=== PATIENT | male | born 1980 | race Caucasian/White ===

== ENCOUNTER 2017-01-09 21:57 | Emergency (ER) | payer SELFPAY ==
[~2017-01-09] VITALS: Ht 177.8 cm; Wt 90.7 kg
[~2017-01-09 21:57] MED LIST: SUBOXONE 2 MG-01 TA1 SL
[2017-01-09 22:27] LABS: HEMATOCRIT 46.8 % (42.0-52.0); HEMOGLOBIN 15.8 g/dl (14.0-18.0); MEAN CELL VOLUME 96.3 fl (80.0-94.0); MEAN CORPUSCULAR HGB 32.5 pg (27.0-31.0); MEAN CORPUSCULAR HGB CONC 33.8 g/dl (33.0-37.0); MEAN PLATELET VOLUME 9.5 fl (9.6-12.3); PLATELET COUNT AUTOMATED 300 10*3/uL (130-400); RED BLOOD COUNT 4.86 10*6/uL (4.50-5.90); RED CELL DISTRI WIDTH 14.5 % (0-14.5); WHITE BLOOD COUNT 14.3 10*3/uL (4.8-10.8)
[2017-01-09 22:45] LABS: BASOPHIL # 0.1 10*3/uL (0-0.1); BASOPHILS 1 % (0-1); LYMPHOCYTE # 0.7 10*3/uL (1.3-4.4); MONOCYTE # 0.4 10*3/uL (0.1-1.0); NEUTROPHILS 91 % (47-73); PLATELET SUFFICIENCY NORMAL (NORMAL); TOTAL CELLS COUNTED 100 #CELLS
[2017-01-09 22:48] LABS: ALKALINE PHOSPHATASE 48 U/L (45-117); BILIRUBIN, TOTAL 0.5 mg/dl (0.2-1.0); BUN 30 mg/dl (7-24); CARBON DIOXIDE 26 mmol/L (21-32); CHLORIDE 104 mmol/L (98-107); EST GLOM FILT AFRICAN AMERICAN 56 ml/min; GLUCOSE 106 mg/dL (65-99); POTASSIUM 5.3 mmol/L (3.5-5.1); SGOT/AST 209 IU/L (3-35); SGPT/ALT 110 U/L (12-78); SODIUM 144 mmol/L (136-145); TOTAL PROTEIN 7.8 gm/dL (6.4-8.2)
[2017-01-10 02:52] LABS: BILIRUBIN 1+ (NEGATIVE); BLOOD NEGATIVE (NEGATIVE); CLARITY SL CLOUDY (CLEAR); COLOR YELLOW (YELLOW); GLUCOSE NEGATIVE (NEGATIVE); KETONE NEGATIVE (NEGATIVE); LEUKO ESTERASE NEGATIVE (NEGATIVE); NITRITE NEGATIVE (NEGATIVE); PROTEIN 1+ (NEGATIVE); SPECIFIC GRAVITY >= 1.030 (1.005-1.030); UROBILINOGEN 0.2 E.U./dl (0.2-1.0)
[2017-01-10 03:02] LABS: URINE AMPHETAMINES < 1000 (1000ng/ml); URINE BARBITURATES < 200 (200ng/ml); URINE COCAINE > 300 (300ng/ml)
[2017-01-10 03:05] LABS: BACTERIA 2+; EPITHELIAL CELLS 0-2
[2017-01-10 03:06] LABS: URINE REFLEX COMMENT YES (NO)
== END 2017-01-10 03:39 ==
LOC: ED 21:57
PROVIDERS: Emergency Medicine
DX: T40.1X1A Poisoning by heroin, accidental (unintentional), initial encounter (principal); T40.4X1A Poisoning by other synthetic narcotics, accidental (unintentional), initial encounter; T40.5X1A Poisoning by cocaine, accidental (unintentional), initial encounter; Y92.9 Unspecified place or not applicable

== ENCOUNTER 2017-02-28 14:34 | Inpatient (IN) | payer SELFPAY ==
[~2017-02-28] VITALS: Ht 178 cm; Wt 94.0 kg
--- NOTE | ~2017-02-28 | CON ---
[place], [place] REPORT OF CONSULTATION [id number] UNIT #: [id number] ROOM: 415 DOCTOR: HAMLET SMILEY MD BIRTHDATE: [birth year] DOS: 03/01/2017 REASON FOR CONSULTATION: Cardiomyopathy, elevated troponin level. HISTORY OF PRESENT ILLNESS: Baljit Stafford is a 36-year-old man with a long history of drug abuse. The patient did have a septic lesion in his left upper arm in 2011. This was treated with incision and drainage and prolonged antibiotic therapy. There is a question as to whether or not he had endocarditis at that time, but no surgery was required. Recently, he was noted to have increased fatigue and dyspnea. Laboratory studies were positive for Lyme disease exposure and possible legionella. A transthoracic echocardiogram done on 12/19/2016 showed an ejection fraction between 45% and 50% with moderate left ventricular hypertrophy and mild mitral insufficiency. A subsequent transesophageal echocardiogram also showed an ejection fraction of 45% with mild mitral insufficiency. The study was otherwise unremarkable. There was no evidence for any endocarditis. The patient did have an exercise stress test on 02/13/2017. He was able to walk 12 minutes on a full Dimas protocol without chest pain or diagnostic electrocardiographic changes and achieved 84% of his maximum predicted heart rate. It was felt that his presentation was most consistent with a non-ischemic cardiomyopathy. He was treated with losartan and metoprolol and allowed to go home. Subsequently, the patient did have a relapse of his heroin addiction and suffered from heroin overdose, which prompted current admission. He was found in a wooded area reportedly by family members who found that he was unresponsive. Emergency medical services were called and he was treated with Narcan with improvement of his sensorium. He was therefore brought to the Emergency Room for further care. On arrival, he was tachycardic. Chest x-ray was unremarkable. Hemoglobin was 16.9. His white count was elevated at 22,100. INR was 0.9. Sodium was 135, potassium 3.7, BUN 12 and creatinine 0.84. Lactic acid level was 4.3. CPK was not obtained, but his troponin level was mildly elevated at 0.053. It subsequently nichol to 0.294 and has not been repeated since then. [facility] was asked to assist the patient to determine the significance of his troponin elevation and ongoing management of his cardiomyopathy. 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 The patient mostly uses heroin or methadone. 2. History of left upper arm abscess with septicemia. There was a question as to whether he may have had endocarditis at that time, but as best I can tell, this was never confirmed. 3. Primary hypertension. 4. Hypogonadism. 5. Recent serologies reportedly positive for Legionella and Lyme disease. The patient has received a course of therapy for these. 6. Echocardiogram on 12/19/2016. Ejection fraction 45-50% with moderate left ventricular hypertrophy and mild mitral insufficiency. [place], [place] REPORT OF CONSULTATION NAME: JULIANA STAFFORD UNIT #: [id number] ROOM: 415 DOCTOR: HAMLET SMILEY MD BIRTHDATE: [birth year] 7. Transesophageal echocardiogram on 12/19/2016. Ejection fraction 45%, mild mitral insufficiency, otherwise normal. No evidence for endocarditis. 8. Exercise stress test 02/13/2017. 12 minutes Dimas protocol, 12.5 mets, 84% maximum predicted heart rate. No chest pain or diagnostic electrocardiographic changes. Low risk exercise stress test. 9. History of kidney surgery, tonsillectomy, adenoidectomy, incision of abscess and surgical manipulation of an ankle joint. REVIEW OF SYSTEMS: The patient denies diplopia or loss of vision. Denies lightheadedness or syncope. Denies focal weakness. Denies orthopnea or PND. Denies fevers, chills, sweats or recent weight change. He denies chest pain or palpitations. He denies nausea or vomiting. He denies hemoptysis or hematemesis. He denies blood in his stools or urine. He denies any peripheral edema. He denies any hot or swollen joints. He denies polydipsia or polyuria. The remainder of the review of systems is negative except as noted above. FAMILY HISTORY: Negative for early coronary artery disease. SOCIAL HISTORY: The patient does not consume alcohol or tobacco. PHYSICAL EXAMINATION: GENERAL: The patient is a well-nourished white male who is awake, alert and oriented. VITAL SIGNS: Pulse is 106 and regular, blood pressure is 144/70. He is afebrile. HEENT: Normocephalic, atraumatic. Extraocular muscles are intact. Sclerae are clear. Pupils are equal, round and react to light. Oral mucosa is moist. Tongue is midline. NECK: Supple. He has no jugular distention. Carotids are full. He has no bruits. He has no neck or supraclavicular masses. LUNGS: Respirations are unlabored. His chest is clear to auscultation and percussion. He has no presacral edema or chest wall tenderness. CARDIOVASCULAR: His heart has a regular rhythm. He has an S4 gallop, but no S3 or murmur. The PMI is not displaced. He has no precordial heave, lift or thrill. ABDOMEN: Soft and normoactive without masses, organomegaly or bruits. EXTREMITIES: Showed no clubbing, cyanosis or edema. Peripheral pulses are easily palpated bilaterally. LABORATORY DATA: Troponin levels are elevated as noted above. Total CK was not obtained. Electrocardiogram shows sinus tachycardia with mild nonspecific ST changes, but is an otherwise normal electrocardiogram. IMPRESSIONS: 1. Heroin overdose. 2. Elevated troponin, most likely this is due to demand ischemia from the patient's hypoxemia, hypotension, etc. in the midst of his overdose. [place], [place] REPORT OF CONSULTATION NAME: JULIANA STAFFORD UNIT #: [id number] ROOM: 415 DOCTOR: HAMLET SMILEY MD BIRTHDATE: [birth year] 3. History of positive serologies for legionella and Lyme disease. 4. Cardiomyopathy, etiology not established, but most likely nonischemic. The patient has been on medical therapy for this, but has not been on any medications for few weeks. PLAN: We will resume the patient's beta blockers and losartan. I would like to watch him overnight and follow his troponin a little farther. If his vital signs appeared normal and his troponins are following by tomorrow morning, I think he could be discharged home for further followup as an outpatient. I thank the hospitalist physicians for asking our advice regarding his care. HAMLET SMILEY MD CM:CONSTR:REPORT OF CONSULTATION 1520 03/01/17 2237 interface
--- NOTE | ~2017-02-28 | CON ---
[place], [place] REPORT OF CONSULTATION NAME: JULIANA MEDEL UNIT #: [id number] ROOM: 415 DOCTOR: WARREN RUSHING,KACI Ambrocio BIRTHDATE: [birth year] DOS: 03/01/2017 ADDENDUM After reviewing the labs and the chart and examining the patient's data, I agree with the above plans as described in Infectious Disease note from March 01. We will follow the patient clinically and adjust accordingly. Thank you for allowing us to see the patient. KACI KELLEY MD CM:CONSTR:REPORT OF CONSULTATION 1200 03/03/17 2135 interface
--- NOTE | ~2017-02-28 | CON ---
[place], [place] REPORT OF CONSULTATION NAME: JULIANA MEDEL UNIT #: [id number] ROOM: 415 DOCTOR: MAXINE TENORIO,OCTOBER BIRTHDATE: [birth year] DOS: 03/01/2017 HISTORY OF PRESENT ILLNESS: The patient is a 36-year-old male who is admitted for the second time in the last 2 months with heroin overdose. At this time, he had had Xanax as well as heroin. He states he was hospitalized at [facility] in December and was treated for Lyme disease and Legionnaires by Dr. Kaci Kelley. His last dose of doxycycline was February 23. He was also diagnosed with cardiomyopathy and is being followed by Dr. Andrade with Cardiology. At this point, there was some concern for sepsis due to an elevated lactic acid at the time of admission as well as tachycardia. The patient states he is alert and oriented, feeling well. He was having no problems prior to his overdose. No fevers. No chills. No pain anywhere. No headache. No dizziness. He has been afebrile since admission. His white count is down to 14.9 today from 22.1. PAST MEDICAL HISTORY: As above, cocaine abuse, drug overdose, primary hypertension, again Legionella, Lyme disease, low testosterone, right ankle fracture, cardiomyopathy, kidney surgery, tonsillectomy and adenoidectomy. SOCIAL HISTORY: Nonsmoker, nondrinker. Drug use as above. FAMILY MEDICAL HISTORY: Father with hypertension, mother with thyroid disease. ALLERGIES: No known drug allergies. CURRENT MEDICATIONS: Include Toprol, Cozaar, Lovenox, Protonix, Rocephin, Zofran and Dulcolax. RADIOLOGY: Chest x-ray is clear. LABORATORY DATA: WBC is 14.9, platelets 234. BUN 12, creatinine 0.84. LFTs within normal limits. REVIEW OF SYSTEMS: Alert and oriented, feels well. Again denies any fevers or chills. No cough or shortness of breath. No pain anywhere. No nausea, vomiting or diarrhea. No rash or itch. No joint swelling or pain. No headache or dizziness. Further review of systems is unremarkable. PHYSICAL EXAMINATION: VITAL SIGNS: Temp 97.2, pulse 98, respirations 17, BP 130/80. GENERAL: A 36-year-old male, in no acute distress. HEAD, EYES, EARS, NOSE AND THROAT: Normocephalic. Mucous membranes are pink and moist. No thrush. NECK: No cervical lymphadenopathy. LUNGS: Clear to auscultation bilaterally. Respirations even and unlabored. HEART: Regular rhythm. No murmur appreciated. ABDOMEN: Soft, nondistended, positive bowel sounds. EXTREMITIES: No edema, deformity or cyanosis. SKIN: Warm, dry, free of rashes, few tattoos. [place], [place] REPORT OF CONSULTATION NAME: JULIANA MEDEL UNIT #: [id number] ROOM: 415 DOCTOR: MAXINE TENORIOOCTOBER BIRTHDATE: [birth year] ASSESSMENT AND PLAN: He is status post treatment for reportedly Lyme disease and Legionella. He completed doxycycline on February 23. At this point, I see no further indications clinically for antibiotics. Does have leukocytosis, which is improving, status post heroin overdose. We will stop the antibiotics and followup on cultures. ROSALBA GOODMAN CNP KACI KELLEY MD CM:CONSTR:REPORT OF CONSULTATION 1741 03/03/17 0826 interface
--- NOTE | ~2017-02-28 | CON ---
[place], [place] REPORT OF CONSULTATION NAME: JULIANA MEDEL UNIT #: [id number] ROOM: 415 DOCTOR: WARREN RUSHING,KACI Ambrocio BIRTHDATE: [birth year] DOS: 03/01/2017 ADDENDUM After reviewing the chart and laboratory data, I agree with the above plans as described. I will follow the patient clinically and adjust accordingly. Thank you for allowing me to see the patient. KACI KELLEY MD CM:CONSTR:REPORT OF CONSULTATION 1159 03/03/17 2133 interface
[2017-02-28 14:34] VITALS: BP 164/104
[2017-02-28 15:21] LABS: BASO # 0.1 10*3/uL (0.0-0.1); BASO % 0.3 % (0.0-1.0); EOS # 0.1 10*3/uL (0.0-0.4); EOS % 0.2 % (1.0-4.0); HEMATOCRIT 48.1 % (42.0-52.0); HEMOGLOBIN 16.9 g/dl (14.0-18.0); IG # 0.2 10*3/uL (0.0-0.1); LYMPH # 2.3 10*3/uL (1.3-4.4); LYMPH % 10.5 % (27.0-41.0); MEAN CELL VOLUME 95.1 fl (80.0-94.0); MEAN CORPUSCULAR HGB 33.4 pg (27.0-31.0); MEAN CORPUSCULAR HGB CONC 35.1 g/dl (33.0-37.0); MEAN PLATELET VOLUME 9.6 fl (9.6-12.3); MONO # 1.2 10*3/uL (0.1-1.0); MONO % 5.4 % (3.0-9.0); NEUT # 18.3 10*3/uL (2.3-7.9); NEUT % 82.5 % (47.0-73.0); PLATELET COUNT AUTOMATED 266 10*3/uL (130-400); RED BLOOD COUNT 5.06 10*6/uL (4.50-5.90); RED CELL DISTRI WIDTH 13.8 % (0-14.5); WHITE BLOOD COUNT 22.1 10*3/uL (4.8-10.8)
[2017-02-28 15:32] VITALS: BP 153/90
[2017-02-28 15:38] LABS: ALKALINE PHOSPHATASE 53 U/L (45-117); BILIRUBIN, TOTAL 0.3 mg/dl (0.2-1.0); BUN 17 mg/dl (7-24); CARBON DIOXIDE 25 mmol/L (21-32); CHLORIDE 102 mmol/L (98-107); EST GLOM FILT AFRICAN AMERICAN > 60 ml/min; GLUCOSE 188 mg/dL (65-99); MAGNESIUM 2.2 mg/dL (1.5-2.1); POTASSIUM 4.2 mmol/L (3.5-5.1); SGOT/AST 36 IU/L (3-35); SGPT/ALT 46 U/L (12-78); SODIUM 137 mmol/L (136-145); TOTAL PROTEIN 7.5 gm/dL (6.4-8.2)
[2017-02-28 15:44] LABS: C-REACTIVE PROTEIN < 0.29 MG/DL (0-0.3)
[2017-02-28 15:46] LABS: TROPONIN I 0.053 ng/ml (<0.045)
[2017-02-28 16:14] LABS: INTERNATIONAL NORM RATIO 0.9 (2.0-3.5)
[2017-02-28 16:22] VITALS: BP 157/88
[2017-02-28 16:37] LABS: BILIRUBIN NEGATIVE (NEGATIVE); BLOOD TRACE-INTACT (NEGATIVE); CLARITY SL CLOUDY (CLEAR); COLOR YELLOW (YELLOW); GLUCOSE NEGATIVE (NEGATIVE); KETONE NEGATIVE (NEGATIVE); LEUKO ESTERASE NEGATIVE (NEGATIVE); NITRITE NEGATIVE (NEGATIVE); PH 5.5 (5.0-9.0); PROTEIN 1+ (NEGATIVE); SPECIFIC GRAVITY >= 1.030 (1.005-1.030); UROBILINOGEN 0.2 E.U./dl (0.2-1.0)
[2017-02-28 16:45] LABS: HYALINE CAST 51-100
[2017-02-28 16:46] LABS: BACTERIA TRACE; EPITHELIAL CELLS 0-2
[2017-02-28 16:47] LABS: MUCOUS 1+; URINE AMPHETAMINES < 1000 (1000ng/ml); URINE BARBITURATES < 200 (200ng/ml); URINE COCAINE < 300 (300ng/ml); URINE REFLEX COMMENT NO (NO)
[2017-02-28 17:03] VITALS: BP 155/95
[2017-02-28 17:06] VITALS: BP 155/95
[2017-02-28] MEDS ORDERED: ALPRAZOLAM2 MG PO (17:11)
[2017-02-28] MEDS ORDERED: TESTOSTERO200 MG/10 IM (17:11)
[2017-02-28 17:15] LABS: LA>2 REFLEX 2 HR DRAW NOW
[2017-02-28 17:57] LABS: LA>2 RFLX FOLLOW UP AT 2 HRS 4.3 mmol/L (0.4-2.0)
[2017-02-28 19:51] LABS: LA>2 REFLEX 4 HR DRAW NOW
[2017-02-28 20:00] VITALS: BP 135/87
[2017-03-01] VITALS: BP 136/83
[2017-03-01 04:00] VITALS: BP 132/82
[2017-03-01 05:40] LABS: ALBUMIN 3.9 gm/dl (3.1-4.5); ALKALINE PHOSPHATASE 46 U/L (45-117); BILIRUBIN, TOTAL 0.6 mg/dl (0.2-1.0); BUN 12 mg/dl (7-24); CARBON DIOXIDE 25 mmol/L (21-32); CHLORIDE 99 mmol/L (98-107); EST GLOM FILT AFRICAN AMERICAN > 60 ml/min; GLUCOSE 98 mg/dL (65-99); MAGNESIUM 2.1 mg/dL (1.5-2.1); PHOSPHOROUS 3.2 mg/dL (2.5-4.9); POTASSIUM 3.7 mmol/L (3.5-5.1); SGOT/AST 31 IU/L (3-35); SGPT/ALT 43 U/L (12-78); SODIUM 135 mmol/L (136-145); TOTAL PROTEIN 7.1 gm/dL (6.4-8.2)
[2017-03-01 05:42] LABS: FREE T4 0.93 ng/dl (0.76-1.46)
[2017-03-01 06:03] LABS: BASO % 0.2 % (0.0-1.0); EOS % 0.3 % (1.0-4.0); HEMATOCRIT 43.6 % (42.0-52.0); HEMOGLOBIN 15.6 g/dl (14.0-18.0); IG # 0.1 10*3/uL (0.0-0.1); LYMPH # 2.7 10*3/uL (1.3-4.4); LYMPH % 18.2 % (27.0-41.0); MEAN CELL VOLUME 95.6 fl (80.0-94.0); MEAN CORPUSCULAR HGB 34.2 pg (27.0-31.0); MEAN CORPUSCULAR HGB CONC 35.8 g/dl (33.0-37.0); MONO # 1.1 10*3/uL (0.1-1.0); MONO % 7.3 % (3.0-9.0); NEUT # 10.9 10*3/uL (2.3-7.9); NEUT % 73.5 % (47.0-73.0); PLATELET COUNT AUTOMATED 234 10*3/uL (130-400); RED BLOOD COUNT 4.56 10*6/uL (4.50-5.90); RED CELL DISTRI WIDTH 14.1 % (0-14.5); WHITE BLOOD COUNT 14.9 10*3/uL (4.8-10.8)
[2017-03-01 08:00] VITALS: BP 168/90
[2017-03-01 11:19] LABS: LA>2 REFLEX 2 HR DRAW NOW
[2017-03-01 12:00] VITALS: BP 144/70
[2017-03-01 16:38] VITALS: BP 130/80
[2017-03-01 20:00] VITALS: BP 138/95
[2017-03-02] VITALS: BP 140/85
[2017-03-02 06:16] LABS: BASO # 0.1 10*3/uL (0.0-0.1); BASO % 0.5 % (0.0-1.0); EOS # 0.1 10*3/uL (0.0-0.4); EOS % 1.2 % (1.0-4.0); HEMATOCRIT 49.6 % (42.0-52.0); HEMOGLOBIN 17.1 g/dl (14.0-18.0); LYMPH # 3.3 10*3/uL (1.3-4.4); LYMPH % 33.1 % (27.0-41.0); MEAN CELL VOLUME 95.9 fl (80.0-94.0); MEAN CORPUSCULAR HGB 33.1 pg (27.0-31.0); MEAN CORPUSCULAR HGB CONC 34.5 g/dl (33.0-37.0); MEAN PLATELET VOLUME 9.9 fl (9.6-12.3); MONO # 0.8 10*3/uL (0.1-1.0); MONO % 8.1 % (3.0-9.0); NEUT # 5.6 10*3/uL (2.3-7.9); NEUT % 56.8 % (47.0-73.0); PLATELET COUNT AUTOMATED 229 10*3/uL (130-400); RED BLOOD COUNT 5.17 10*6/uL (4.50-5.90); WHITE BLOOD COUNT 9.9 10*3/uL (4.8-10.8)
[2017-03-02 06:40] LABS: BUN 9 mg/dl (7-24); CARBON DIOXIDE 24 mmol/L (21-32); CHLORIDE 103 mmol/L (98-107); EST GLOM FILT AFRICAN AMERICAN > 60 ml/min; GLUCOSE 85 mg/dL (65-99); POTASSIUM 4.4 mmol/L (3.5-5.1); SODIUM 135 mmol/L (136-145)
[2017-03-02 06:42] LABS: TROPONIN I 0.065 ng/ml (<0.045)
[2017-03-02 08:00] VITALS: BP 133/75
[2017-03-02] MEDS ORDERED: METOPROLOL SUCC25 M2 PO (09:46)
[2017-03-02] MEDS ORDERED: LOSARTAN POTASS25 M1 PO (09:46)
== END 2017-03-02 12:45 | disposition home or self-care (01) | DRG 871 ==
LOC: ED 14:34 → ICCU 15:53 → EDHOLD 15:53 → ICCU 15:57 → 4E 03-01 16:37
PROVIDERS: Family Medicine; Registered Nurse; Student in an Organized Health Care Education/Training Program
DX: A41.9 Sepsis, unspecified organism (principal); A48.1 Legionnaires' disease; J96.00 Acute respiratory failure, unspecified whether with hypoxia or hypercapnia; N17.0 Acute kidney failure with tubular necrosis; G93.41 Metabolic encephalopathy; I42.9 Cardiomyopathy, unspecified; E83.41 Hypermagnesemia; A69.20 Lyme disease, unspecified; E87.1 Hypo-osmolality and hyponatremia; T40.1X1A Poisoning by heroin, accidental (unintentional), initial encounter; R65.20 Severe sepsis without septic shock; R73.9 Hyperglycemia, unspecified; Z87.81 Personal history of (healed) traumatic fracture; Z82.49 Family history of ischemic heart disease and other diseases of the circulatory system; Z90.49 Acquired absence of other specified parts of digestive tract; Y92.89 Other specified places as the place of occurrence of the external cause

== ENCOUNTER → 2024-07-29 | Outpatient (CLI) | payer OTHER ==
[~2024-07-29] MED LIST changes: +ALPRAZOLAM2 MG PO; +LOSARTAN POTASS25 M1 PO; +METOPROLOL SUCC25 M2 PO; +TESTOSTERO200 MG/10 IM
== END | disposition home or self-care (01) ==
LOC: CT 13:00
PROVIDERS: ATTEND Internal Medicine Critical Care Medicine
DX: R91.1 Solitary pulmonary nodule (principal); I25.10 Atherosclerotic heart disease of native coronary artery without angina pectoris; R40.0 Somnolence; R06.83 Snoring; G47.33 Obstructive sleep apnea (adult) (pediatric); Z68.31 Body mass index [BMI] 31.0-31.9, adult